=== PATIENT | female | born 1950 | race Caucasian/White ===

== ENCOUNTER 2016-07-11 03:42 | Inpatient (IN) | payer MEDICARE ==
--- NOTE | ~2016-07-11 | HP ---
History And Physical [address] [place]. [address] NAME: OLGA REESE : 52 STATUS : ADM IN [facility]#: [id number] AGE: 66 ADM/REG DATE : 07/11/16 MR#: [id number] REPORT SERV DATE: 07/11/16 DICTATED BY: JAMES BROWNE DATE: 07/11/16 REPORT STATUS : Draft TRANSCRIBED BY: MODL DATE: 07/11/16 DATE OF ADMISSION: 07/11/2016 CHIEF COMPLAINT: This is a 66-year-old female presenting with increasing perineal pain and swelling with dysuria, confusion, lethargy, and uncontrolled blood sugars. HISTORY OF PRESENT ILLNESS: The patient's history was obtained through careful interview with the patient and son coupled with review of [facility] medical records. The patient states that over this last month really she has had persistent and progressive perineal discomfort and redness. She believes the sores begin to break out at times and sometimes swelling. She describes a constant perineal discomfort, soreness quality, 5/10 severity. She has also noticed difficulty controlling blood sugars despite a reported use of her insulin. During discussion it is very clear that at times the patient is noncompliant with diet. She has had dysuria, urinary frequency over the last few days. She has had intermittent confusion and lethargy. She describes diarrhea for about a week now. She denies any fevers, chills. No shortness of breath. No cough. No chest pain. Blood sugars have been consistently in the 500s or higher at times. REVIEW OF SYSTEMS: Otherwise, a 14-point review of systems was obtained and was negative. PAST MEDICAL HISTORY: 1. Diabetes. Hemoglobin A1c of 16.1 early in 2017. 2. Pyelonephritis/urinary tract infections. 3. ESBL E. coli cellulitis. 4. COPD/asthma. 5. Obstructive sleep apnea, on CPAP. 6. Diastolic congestive heart failure and left ventricular hypertrophy. 7. Coronary artery disease, status post stent placement x10 under the care of Dr. Nilesh Noland. 8. Liver disease possibly old history of hepatitis A. 9. Hepatic encephalopathy. 10.Neuropathy. 11.Nephrolithiasis. 12.Gastroparesis. 13.Gastroesophageal reflux disorder. 14.Bipolar disorder. 15.Posttraumatic stress disorder. History And Physical [address] [place]. [address] NAME: OLGA REESE : [birth year] STATUS : ADM IN PAT#: [id number] AGE: 66 ADM/REG DATE : 07/11/16 MR#: [id number] REPORT SERV DATE: 07/11/16 DICTATED BY: JAMES BROWNE DATE: 07/11/16 REPORT STATUS : Draft TRANSCRIBED BY: MODRicky DATE: 07/11/16 16.Anxiety. 17.Depression. 18.Panic attacks. 19.Pain management. 20.Fibromyalgia. 21.Gout. 22.Rheumatoid arthritis, off Enbrel recently because of infection. 23.Peptic ulcer disease. 24.Positive PPD on previous history of isoniazid treatment. PAST SURGICAL HISTORY: 1. Perineal abscess incision and drainage. 2. Hysterectomy. 3. Appendectomy. 4. Bladder repair x2. 5. Sinus surgery. 6. Laparoscopy for "twisted colon.". 7. Left breast lumpectomy for benign disease. ALLERGIES: DARVON, ELAVIL, STADOL, DILAUDID, CYMBALTA, LATUDA. SOCIAL HISTORY: The patient smokes cigarettes. She does not drink alcohol. She is , lives with her son in [place], [place], has total of two children. FAMILY HISTORY: Diabetes, heart disease. Father at 34 years of age of a myocardial infarction. A brother with CABG. CURRENT MEDICATIONS: Include albuterol inhaler, Proventil, Norvasc 10 mg daily, aspirin 81 mg daily, Lipitor 80 mg daily, clonidine 0.2 mg p.o. b.i.d., Benadryl p.r.n., Enbrel but has been discontinued because of recent infections, Lasix 40 mg p.o. t.i.d., Neurontin 300 mg p.o. four times a day, NovoLog 30 units subcutaneous before each meal and sliding-scale insulin, Lantus 64 units subcutaneous twice a day, lisinopril 40 mg daily, Robaxin, Myrbetriq 50 mg p.o. daily, Singulair 10 mg daily, Bystolic 5 mg daily, Paxil 40 mg p.o. b.i.d., potassium 20 mEq p.o. t.i.d., Brilinta 90 mg p.o. b.i.d., Spiriva inhaled daily, Anoro Ellipta inhaled daily. PHYSICAL EXAMINATION: VITAL SIGNS: Temperature 99.1, pulse 77, blood pressure 113/58, respiratory rate 20, O2 saturation 91% on room air. GENERAL: An ill-appearing female. She describes distress from her generalized illness. HEENT: Pupils equal, round, and reactive to light. No conjunctival pallor. No scleral icterus. Nares are patent. Oropharynx is clear of obstruction. Dry mucous membranes. NECK: Trachea midline. No thyromegaly. LYMPH: No cervical lymphadenopathy. No supraclavicular lymphadenopathy. RESPIRATORY: Clear to auscultation at bases. No wheezes, rales, or rhonchi. Normal respiratory effort. History And Physical [address] [address] NAME: OLGA REESE : 52 STATUS : ADM IN [facility]#: [id number] AGE: 66 ADM/REG DATE : 07/11/16 MR#: [id number] REPORT SERV DATE: 07/11/16 DICTATED BY: JAMES BROWNE DATE: 07/11/16 REPORT STATUS : Draft TRANSCRIBED BY: SHAILA DATE: 07/11/16 CARDIOVASCULAR: Regular rate and rhythm. No murmurs, rubs, or gallops. No extremity edema is appreciated. ABDOMEN: Soft, nontender, nondistended. Normal bowel sounds auscultated throughout. No hepatosplenomegaly. No flank tenderness. DERMATOLOGIC: The patient's perineum shows areas of erythema, heat, swelling, and tenderness and ulceration over skin. Otherwise, warm and dry. EXTREMITIES: No pallor. No cyanosis. PSYCHIATRIC: Normal affect. Good mood. Alert and oriented x3. LABORATORY DATA: White blood cell count 13.8 with 11% bands, hemoglobin 12, hematocrit 37, platelets 260. Sodium 129, potassium 3.8, chloride 94, bicarb 25, BUN 13, creatinine 1.42 from baseline creatinine of 0.7, glucose 535, albumin 2.4, lactic acid 1.2. Influenza negative. Ammonia level 36. Liver enzymes within normal limits. Urinalysis shows greater than 182 white blood cells, greater than 182 red blood cells, positive leukocyte esterase. STUDIES: Chest x-ray by my own evaluation shows no acute cardiopulmonary process. ASSESSMENT AND PLAN: 1. Perineal cellulitis. Obtain a wound care consult. Place on IV vancomycin. 2. Urinary tract infection with hematuria. Check CT scan of the abdomen and pelvis, place on IV antibiotics. Check urine culture. 3. Uncontrolled diabetes. Check hemoglobin A1c. Place sliding scale insulin. Continue Levemir and premeal insulin. Obtain a asthma educator consult. I am concerned about noncompliance? 4. Diarrhea. Check stool studies. 5. Obstructive sleep apnea. Place on a CPAP. 6. Acute kidney injury. Place on IV fluids. 7. Rheumatoid arthritis. Taken off Enbrel secondary to recurrent infections. KPL/MODL James Browne M.D. / [id number] CC: MD Yessica Duron MD
--- NOTE | ~2016-07-11 | DS ---
Discharge Summary [facility] [address] [place]. [address] NAME: OLGA REESE : 52 STATUS : DIS IN PAT#: [id number] AGE: 66 ADM/REG DATE : 07/11/16 MR#: [id number] REPORT SERV DATE: 07/16/16 DICTATED BY: MAMI SPRING DATE: 07/15/16 REPORT STATUS : Draft TRANSCRIBED BY: MODL DATE: 07/15/16 ADMISSION DATE: 07/11/2016 DISCHARGE DATE: 07/15/2016 HISTORY OF PRESENT ILLNESS: The patient is a 66-year-old female with a history of diabetes type 2, COPD, diastolic heart failure, coronary artery disease, and gastroparesis, who presented to the hospital with a complaint of increasing peritoneal pain and swelling, confusion and lethargy with hyperglycemia. For further details, please refer to H and P dictated by Dr. Kenneth Pete 07/12/2015. HOSPITAL COURSE: Upon presentation to the hospital, the patient was admitted on the hospitalist service secondary to perineal cellulitis with a wound care consult placed. The patient was brought from the emergency room to the medical floor. At the time of my evaluation, the patient had altered mental status and also her stool culture came back positive for C. diff. The patient was placed on contact isolation, started on p.o. vancomycin. The patient was also noted to have UTI at the time of presentation and she was started on antibiotic therapy for that. Her electrolytes were monitored throughout her hospitalization. Status post initiation of antibiotic therapy, the patient progressively improved. Today, her diarrhea significantly improved. The patient reports that she has about three to four bowel movements a day. She states she feels significantly better than when she first presented. Her vitals are all within acceptable limits. Given significant improvement of her symptoms, the patient will be discharged home to follow with her primary care physician. Plan has been discussed with the patient who voices understanding and is agreeable with this plan. DISCHARGE DIAGNOSES: 1. Perineal cellulitis. 2. Clostridium difficile colitis. 3. Urinary tract infection with hematuria. 4. Diabetes type 2. 5. Acute kidney injury. 6. Rheumatoid arthritis. 7. Obesity. DISCHARGE PHYSICAL EXAMINATION: VITAL SIGNS: Blood pressure 107/56, pulse of 57, respirations 16, O2 sat 98% on 2 L nasal cannula, temperature 98.1. GENERAL: The patient is sitting in bed, in no acute distress. Appears stated age. HEENT: Normocephalic, atraumatic. Extraocular motors intact. Moist oral mucosa. Pupils are anicteric. NECK: Trachea midline and symmetric. No JVD. CHEST: Nontender to palpation. No scars noted. CARDIOVASCULAR: Regular rate and rhythm. S1, S2. No murmurs, rubs, or gallops. LUNGS: Clear to auscultation bilaterally. ABDOMEN: Obese, mildly distended. Positive bowel sounds. Nontender. Nondistended. No fluid thrill. No shifting dullness. EXTREMITIES: No cyanosis. No clubbing. No edema. Discharge Summary [address] [address] NAME: OLGA REESE : 52 STATUS : DIS IN [facility]#: [id number] AGE: 66 ADM/REG DATE : 07/11/16 MR#: [id number] REPORT SERV DATE: 07/16/16 DICTATED BY: MAMI SPRING DATE: 07/15/16 REPORT STATUS : Draft TRANSCRIBED BY: SHAILA DATE: 07/15/16 NEUROLOGIC: Alert and oriented x3. No focal deficits appreciated. DISCHARGE MEDICATIONS: The patient's home medications were continued with the addition of Bactrim DS one tablet b.i.d. for seven days, vancomycin 125 mg every six hours for nine days. IMAGING STUDIES: CT abdomen and pelvis. Impression. 1. Colonic thickening with inflammation of adjacent fat consistent with colitis as reported above. 2. Hysterectomy. 3. Calcific atherosclerosis. 4. Linear densities present in the lumen of the gastric antrum nonspecific, possibly catheter segment or other linear ingestants of opaque matter. DISPOSITION: The patient will be discharged home and follow up with her PCP. DIET: Diabetic diet. ACTIVITY: As tolerated. Greater than 30 minutes was spent in coordinating discharge, medication reconciliation, writing prescriptions, discussion of care with nursing staff, dictation of note. MICAELA/SHAILA Mami Spring MD / [id number] CC: MD Yessica Duron MD
[~2016-07-11 03:42] MED LIST: *UNABLE1; ADVAIR INH; AFRIN15 NAS; ALBUTEROL5 INH; ALLERGY TABLET PO; AMB10 PO; AMPI500 PO; ANOROELLIPTA INH; APRES50 PO; ARAVA20 PO; ASAB PO; AZO-STANDARD95 MG; AZO-STANDARD95 MG PO; BACLOFEN20 MG PO; BEN25 PO; BENTYL10 PO; BRILINTA90 MG PO; BYSTOLIC PO; BYSTOLIC10 MG PO; BYSTOLIC5 MG PO; CALTRA600D PO; CAT2 PO; CIP5 PO; COMBIVENT INH; COMBIVENT RESPIM4 GM INH; CONSTULOSE PO; COREG12 PO; COZAAR100 MG PO; CYMBALTA60 PO; DORYX100 MG PO; DUONEB INH; DURA50 TOP; EFFEXOR XR150 MG PO; EFFEXXR75 PO; EFFIENT PO; EFFIENT10 PO; ENBREL25 MG SC; ENBREL50 MG/M1 SC; ENDOCET1 TA3 PO; FISH OIL1200 MG PO; FOLIC PO; FOSAMAX70 MG PO; GLUCOPHAGE1000 MG PO; GLUCPH PO; HALF81 PO; HYDROCHLOROT25 MG PO; KAPIDEX60 MG PO; KDUR20 PO; KLONO1 PO; KLONO2 PO; KLOR-CON M2020 MEQ PO; L20 PO; L40 PO; LANTUS SC; LANTUSCART SC; LATUDA20 MG PO; LEVSINTAB PO; LIDODERM T; LIPITOR20 PO; LIPITOR80 MG PO; LISINOPRIL PO; LISINOPRIL40 MG PO; LOFIB160 PO; LOM PO; LORTAB10 PO; METHOC500B PO; METHOC750B PO; MIRALAXPKT PO; MTX2.5 PO; MYRBETRIQ50 MG PO; NEBULIZER MED; NEBULIZER TREATMENT INH; NEUR300 PO; NITROQUICK0.4 MG SL; NITROSTAT0.4 MG SL; NORCO1 TA1 PO; NORV10 PO; NOVOLOG SC; NOVOPEN SC; PAX10 PO; PAX20 PO; PAXIL40 MG PO; PCET PO; PLAVIX PO; PR25 PO; PRAVACHOL80 MG PO; PRILO PO; PRIN20 PO; PROAIR HFA INH; PROAIR HFA PO; PROTONIX PO; PROVENTSOL INH; PROVHFA INH; PULMICORT180 MCG INH; REMERON30 MG PO; SINGULAIR1 PO; SPIRIVA INH; SPIRO25 PO; TOPXL25 PO; TOPXL50 PO; VENTOLIN HFA INH; VIB100 PO; VICODINTAB PO; VITAMIN A8000 UNIT PO; VITAMIN D31000 UNIT PO; X25 PO; X5 PO; XANAX1 MG PO; ZESTRIL40 MG PO; ZOFRAN4 PO; ZYPREXA7.5 MG PO
[2016-07-11 03:50] LABS: BASOPHILS 0.2 %; BASOPHILS ABSOLUTE 0.03 10/3/uL (0.0-0.16); EOSINOPHILS 1.2 %; EOSINOPHILS ABSOLUTE 0.16 10/3/uL (0.0-0.53); HEMATOCRIT 36.6 % (36.0-48.0); HEMOGLOBIN 12.1 g/dL (12.0-16.0); IMMATURE GRANULOCYTES 0.1 %; IMMATURE GRANULOCYTES ABSOLUTE 0.02 10/3/uL (0.0-0.11); LYMPHOCYTES 16.5 %; LYMPHOCYTES ABSOLUTE 2.27 10/3/uL (0.67-4.30); MEAN CORPUS HGB CONC 33.1 g/dL (32.0-36.0); MEAN CORPUSCULAR HEMOGLOB 30.3 pg (26.0-34.0); MEAN CORPUSCULAR VOLUME 91.7 fL (80-100); MEAN PLATELET VOLUME 10.1 fL (9.2-13.0); MONOCYTES 6.4 %; MONOCYTES ABSOLUTE 0.88 10/3/uL (0.21-1.20); NEUTROPHILS 75.6 %; NEUTROPHILS ABSOLUTE 10.42 10/3/uL (2.02-8.40); PLATELET COUNT 260 10/3/uL (150-400); RBC DISTRIBUTION WIDTH 13.3 % (12.0-16.0); RED CELL COUNT 3.99 10/6/uL (4.0-5.6)
[2016-07-11 03:53] LABS: ER CBC TAT 0 Hrs 12 Mins; WHITE BLOOD CELLS 13.8 10/3/uL (4.5-10.5)
[2016-07-11 03:54] LABS: MANUAL DIFF NO %
[2016-07-11 04:04] LABS: A/G RATIO 0.5 (0.7-1.9); ALBUMIN 2.4 G/DL (3.5-5.0); ALKALINE PHOSPHATASE 100 U/L (45-117); BUN (BLOOD UREA NITROGEN) 13 MG/DL (6-23); CALCIUM, SERUM 7.6 MG/DL (8.5-10.4); CO2 (CARBON DIOXIDE) 25 MMOL/L (24-34); GLOBULIN 4.5 G/DL (2.5-4.1); POTASSIUM, SERUM 3.8 MMOL/L (3.5-5.3); SGOT(AST) 15 U/L (5-40); SGPT(ALT) 15 U/L (5-65); TOTAL BILIRUBIN 0.5 MG/DL (0-1.2); TOTAL PROTEIN 6.9 G/DL (6.0-8.5)
[2016-07-11 04:05] LABS: CHLORIDE, SERUM 94 MMOL/L (96-112); CREATININE 1.42 MG/DL (0.55-1.02); GFR AFRICAN AMERICAN 45 ML/MIN (>=60); GFR NON AFRICAN AMERICAN 39 ML/MIN (>=60); GLUCOSE, SERUM 535 MG/DL (60-99); LACTATE 1.2 MMOL/L (0.3-2.4); SODIUM, SERUM 129 MMOL/L (135-148)
[2016-07-11 04:14] LABS: INFLUENZA A SCREEN NEGATIVE (NEGATIVE); INFLUENZA B SCREEN NEGATIVE (NEGATIVE)
[2016-07-11 04:22] LABS: BAND NEUTROPHILS 11 %; ER DIFF TAT 0 Hrs 41 Mins; IMMATURE GRANS ABSOLUTE (CALC) 0.28 10/3/uL (0.0-0.11); LYMPHOCYTES 15 %; LYMPHOCYTES ABSOLUTE (CALC) 2.07 10/3/uL (0.67-4.30); METAMYELOCYTES 2 %; MONOCYTES 5 %; MONOCYTES ABSOLUTE (CALC) 0.69 10/3/uL (0.21-1.20); NEUTROPHILS ABSOLUTE (CALC) 10.76 10/3/uL (2.02-8.40); PLATELET ESTIMATE ADQ (ADEQUATE); RBC MORPHOLOGY NORM (NORMAL); SEGMENTED NEUTROPHIL (0) 67 %; TOTAL NUCLEATED CELLS 100
[2016-07-11 04:37] LABS: ASCORBIC ACID (UR NOT ORDER) NEG (NEG); BILIRUBIN, URINE NEGATIVE (NEG); ER URINALYSIS TAT 0 Hrs 00 Mins; KETONE, URINE NEGATIVE (NEG); LEUKOCYTE ESTERASE(NOT OR MOD (NEG); NITRITE (URINE) NEG (NEG)
[2016-07-11 04:38] LABS: WBC (NOT ORDERED) (RFLEX) > 182 (0-5)
[2016-07-11 05:45] LABS: PROCALCITONIN 0.32 ng/mL (<0.5)
[2016-07-11 11:05] LABS: HEMATOCRIT 37.7 % (36.0-48.0); HEMOGLOBIN 12.1 g/dL (12.0-16.0); MEAN CORPUS HGB CONC 32.1 g/dL (32.0-36.0); MEAN CORPUSCULAR HEMOGLOB 29.4 pg (26.0-34.0); MEAN CORPUSCULAR VOLUME 91.5 fL (80-100); MEAN PLATELET VOLUME 9.9 fL (9.2-13.0); PLATELET COUNT 251 10/3/uL (150-400); RBC DISTRIBUTION WIDTH 13.4 % (12.0-16.0); RED CELL COUNT 4.12 10/6/uL (4.0-5.6); WHITE BLOOD CELLS 14.2 10/3/uL (4.5-10.5)
[2016-07-11 11:06] LABS: MANUAL DIFF YES %
[2016-07-11 11:15] LABS: INTERNATIONAL NORMAL RATI 1.2 UNITS (-); PARTIAL THROMBO TIME 32.8 SEC (22.5-37.2); PROTIME (NOT ORD) 15.1 SEC (12.0-14.5)
[2016-07-11 11:28] LABS: A/G RATIO 0.5 (0.7-1.9); ALBUMIN 2.3 G/DL (3.5-5.0); ALKALINE PHOSPHATASE 93 U/L (45-117); BUN (BLOOD UREA NITROGEN) 13 MG/DL (6-23); CALCIUM, SERUM 7.3 MG/DL (8.5-10.4); CHLORIDE, SERUM 99 MMOL/L (96-112); CO2 (CARBON DIOXIDE) 28 MMOL/L (24-34); CREATININE 1.21 MG/DL (0.55-1.02); GFR AFRICAN AMERICAN 54 ML/MIN (>=60); GFR NON AFRICAN AMERICAN 47 ML/MIN (>=60); GLOBULIN 4.2 G/DL (2.5-4.1); SGOT(AST) 16 U/L (5-40); SGPT(ALT) 14 U/L (5-65); TOTAL BILIRUBIN 0.3 MG/DL (0-1.2); TOTAL PROTEIN 6.5 G/DL (6.0-8.5); TROPONIN I 0.03 NG/ML (<0.05)
[2016-07-11 11:30] LABS: B NATRIURETIC PEPTIDE (BNP) 74.7 PG/ML (< 100.0); GLUCOSE, SERUM 229 MG/DL (60-99); POTASSIUM, SERUM 2.9 MMOL/L (3.5-5.3); SODIUM, SERUM 136 MMOL/L (135-148)
[2016-07-11 12:25] LABS: BAND NEUTROPHILS 25 %; BASOPHILS 1 %; BASOPHILS ABSOLUTE (CALC) 0.14 10/3/uL (0.0-0.16); EOSINOPHILS 1 %; EOSINOPHILS ABSOLUTE (CALC) 0.14 10/3/uL (0.0-0.53); LYMPHOCYTES 5 %; LYMPHOCYTES ABSOLUTE (CALC) 0.71 10/3/uL (0.67-4.30); MONOCYTES 5 %; MONOCYTES ABSOLUTE (CALC) 0.71 10/3/uL (0.21-1.20); PLATELET ESTIMATE ADQ (ADEQUATE); SEGMENTED NEUTROPHIL (0) 63 %; TOTAL NUCLEATED CELLS 100
[2016-07-11 12:26] LABS: RBC MORPHOLOGY NORM (NORMAL)
[2016-07-12 05:23] LABS: HEMOGLOBIN 11.1 g/dL (12.0-16.0); MEAN CORPUS HGB CONC 32.8 g/dL (32.0-36.0); MEAN CORPUSCULAR VOLUME 91.4 fL (80-100); PLATELET COUNT 261 10/3/uL (150-400); RBC DISTRIBUTION WIDTH 13.5 % (12.0-16.0); WHITE BLOOD CELLS 12.9 10/3/uL (4.5-10.5)
[2016-07-12 05:30] LABS: HEMATOCRIT 33.8 % (36.0-48.0); MANUAL DIFF YES %
[2016-07-12 06:08] LABS: BAND NEUTROPHILS 17 %; BASOPHILS 1 %; BASOPHILS ABSOLUTE (CALC) 0.13 10/3/uL (0.0-0.16); EOSINOPHILS 1 %; EOSINOPHILS ABSOLUTE (CALC) 0.13 10/3/uL (0.0-0.53); LYMPHOCYTES 10 %; LYMPHOCYTES ABSOLUTE (CALC) 1.29 10/3/uL (0.67-4.30); MONOCYTES 8 %; MONOCYTES ABSOLUTE (CALC) 1.03 10/3/uL (0.21-1.20); NEUTROPHILS ABSOLUTE (CALC) 10.32 10/3/uL (2.02-8.40); PLATELET ESTIMATE ADQ (ADEQUATE); SEGMENTED NEUTROPHIL (0) 63 %; TOTAL NUCLEATED CELLS 100; TOXIC GRANULATION SLT
[2016-07-12 06:42] LABS: PROCALCITONIN 0.46 ng/mL (<0.5)
[2016-07-12 06:56] LABS: A/G RATIO 0.5 (0.7-1.9); ALBUMIN 2.2 G/DL (3.5-5.0); ALKALINE PHOSPHATASE 100 U/L (45-117); BUN (BLOOD UREA NITROGEN) 12 MG/DL (6-23); CALCIUM, SERUM 7.6 MG/DL (8.5-10.4); CHLORIDE, SERUM 107 MMOL/L (96-112); CREATININE 0.89 MG/DL (0.55-1.02); GFR AFRICAN AMERICAN 79 ML/MIN (>=60); GFR NON AFRICAN AMERICAN 68 ML/MIN (>=60); GLOBULIN 4.4 G/DL (2.5-4.1); SGOT(AST) 28 U/L (5-40); SGPT(ALT) 23 U/L (5-65); SODIUM, SERUM 140 MMOL/L (135-148); TOTAL BILIRUBIN 0.3 MG/DL (0-1.2); TOTAL PROTEIN 6.6 G/DL (6.0-8.5)
[2016-07-12 06:57] LABS: CO2 (CARBON DIOXIDE) 21 MMOL/L (24-34); GLUCOSE, SERUM 128 MG/DL (60-99)
[2016-07-13 08:17] LABS: HEMATOCRIT 32.7 % (36.0-48.0); HEMOGLOBIN 10.8 g/dL (12.0-16.0); MEAN CORPUSCULAR HEMOGLOB 29.8 pg (26.0-34.0); MEAN CORPUSCULAR VOLUME 90.1 fL (80-100); MEAN PLATELET VOLUME 9.9 fL (9.2-13.0); PLATELET COUNT 296 10/3/uL (150-400); RBC DISTRIBUTION WIDTH 13.6 % (12.0-16.0); RED CELL COUNT 3.63 10/6/uL (4.0-5.6)
[2016-07-13 08:19] LABS: MANUAL DIFF YES %
[2016-07-13 08:35] LABS: A/G RATIO 0.5 (0.7-1.9); ALBUMIN 1.9 G/DL (3.5-5.0); ALKALINE PHOSPHATASE 98 U/L (45-117); BUN (BLOOD UREA NITROGEN) 13 MG/DL (6-23); CALCIUM, SERUM 7.5 MG/DL (8.5-10.4); CHLORIDE, SERUM 104 MMOL/L (96-112); CO2 (CARBON DIOXIDE) 21 MMOL/L (24-34); CREATININE 0.77 MG/DL (0.55-1.02); GFR AFRICAN AMERICAN 94 ML/MIN (>=60); GFR NON AFRICAN AMERICAN 81 ML/MIN (>=60); GLOBULIN 3.9 G/DL (2.5-4.1); POTASSIUM, SERUM 3.6 MMOL/L (3.5-5.3); SGOT(AST) 18 U/L (5-40); SGPT(ALT) 15 U/L (5-65); SODIUM, SERUM 137 MMOL/L (135-148); TOTAL BILIRUBIN 0.4 MG/DL (0-1.2); TOTAL PROTEIN 5.8 G/DL (6.0-8.5)
[2016-07-13 08:36] LABS: GLUCOSE, SERUM 196 MG/DL (60-99)
[2016-07-13 08:52] LABS: BAND NEUTROPHILS 11 %; EOSINOPHILS 1 %; EOSINOPHILS ABSOLUTE (CALC) 0.16 10/3/uL (0.0-0.53); IMMATURE GRANS ABSOLUTE (CALC) 0.16 10/3/uL (0.0-0.11); LYMPHOCYTES 11 %; LYMPHOCYTES ABSOLUTE (CALC) 1.76 10/3/uL (0.67-4.30); METAMYELOCYTES 1 %; MONOCYTES 4 %; MONOCYTES ABSOLUTE (CALC) 0.64 10/3/uL (0.21-1.20); NEUTROPHILS ABSOLUTE (CALC) 13.28 10/3/uL (2.02-8.40); PLATELET ESTIMATE ADQ (ADEQUATE); RBC MORPHOLOGY NORM (NORMAL); SEGMENTED NEUTROPHIL (0) 72 %; TOTAL NUCLEATED CELLS 100
[2016-07-14 04:49] LABS: HEMATOCRIT 33.6 % (36.0-48.0); HEMOGLOBIN 11.1 g/dL (12.0-16.0); MEAN CORPUSCULAR VOLUME 90.8 fL (80-100); PLATELET COUNT 315 10/3/uL (150-400); RBC DISTRIBUTION WIDTH 13.8 % (12.0-16.0); WHITE BLOOD CELLS 17.3 10/3/uL (4.5-10.5)
[2016-07-14 05:01] LABS: A/G RATIO 0.5 (0.7-1.9); ALBUMIN 1.8 G/DL (3.5-5.0); BUN (BLOOD UREA NITROGEN) 10 MG/DL (6-23); CALCIUM, SERUM 7.9 MG/DL (8.5-10.4); CHLORIDE, SERUM 105 MMOL/L (96-112); CO2 (CARBON DIOXIDE) 23 MMOL/L (24-34); CREATININE 0.64 MG/DL (0.55-1.02); GFR AFRICAN AMERICAN 109 ML/MIN (>=60); GFR NON AFRICAN AMERICAN 94 ML/MIN (>=60); GLOBULIN 3.5 G/DL (2.5-4.1); POTASSIUM, SERUM 3.9 MMOL/L (3.5-5.3); SGOT(AST) 30 U/L (5-40); SGPT(ALT) 19 U/L (5-65); SODIUM, SERUM 140 MMOL/L (135-148); TOTAL BILIRUBIN 0.4 MG/DL (0-1.2); TOTAL PROTEIN 5.3 G/DL (6.0-8.5)
[2016-07-14 05:02] LABS: ALKALINE PHOSPHATASE 131 U/L (45-117); GLUCOSE, SERUM 104 MG/DL (60-99)
[2016-07-14 05:09] LABS: MANUAL DIFF YES %
[2016-07-14 06:08] LABS: BAND NEUTROPHILS 6 %; EOSINOPHILS 1 %; EOSINOPHILS ABSOLUTE (CALC) 0.17 10/3/uL (0.0-0.53); LYMPHOCYTES 5 %; LYMPHOCYTES ABSOLUTE (CALC) 0.87 10/3/uL (0.67-4.30); MONOCYTES 6 %; MONOCYTES ABSOLUTE (CALC) 1.04 10/3/uL (0.21-1.20); NEUTROPHILS ABSOLUTE (CALC) 15.22 10/3/uL (2.02-8.40); PLATELET ESTIMATE ADQ (ADEQUATE); RBC MORPHOLOGY NORM (NORMAL); SEGMENTED NEUTROPHIL (0) 82 %; TOTAL NUCLEATED CELLS 100
[2016-07-15 06:22] LABS: HEMATOCRIT 32.5 % (36.0-48.0); HEMOGLOBIN 10.5 g/dL (12.0-16.0); MEAN CORPUS HGB CONC 32.3 g/dL (32.0-36.0); MEAN CORPUSCULAR HEMOGLOB 29.6 pg (26.0-34.0); MEAN CORPUSCULAR VOLUME 91.5 fL (80-100); MEAN PLATELET VOLUME 9.6 fL (9.2-13.0); PLATELET COUNT 316 10/3/uL (150-400); RED CELL COUNT 3.55 10/6/uL (4.0-5.6)
[2016-07-15 06:24] LABS: MANUAL DIFF YES %
[2016-07-15 06:54] LABS: IMMATURE GRANS ABSOLUTE (CALC) 0.15 10/3/uL (0.0-0.11); LYMPHOCYTES 16 %; MONOCYTES 5 %; MONOCYTES ABSOLUTE (CALC) 0.75 10/3/uL (0.21-1.20); MYELOCYTES 1 %; SEGMENTED NEUTROPHIL (0) 78 %; TOTAL NUCLEATED CELLS 100
[2016-07-15 06:55] LABS: A/G RATIO 0.5 (0.7-1.9); ALBUMIN 1.8 G/DL (3.5-5.0); BUN (BLOOD UREA NITROGEN) 13 MG/DL (6-23); CALCIUM, SERUM 7.6 MG/DL (8.5-10.4); CHLORIDE, SERUM 108 MMOL/L (96-112); CO2 (CARBON DIOXIDE) 19 MMOL/L (24-34); CREATININE 0.66 MG/DL (0.55-1.02); GFR AFRICAN AMERICAN 107 ML/MIN (>=60); GFR NON AFRICAN AMERICAN 93 ML/MIN (>=60); GLOBULIN 3.4 G/DL (2.5-4.1); POTASSIUM, SERUM 4.3 MMOL/L (3.5-5.3); SGOT(AST) 48 U/L (5-40); SGPT(ALT) 34 U/L (5-65); SODIUM, SERUM 140 MMOL/L (135-148); TOTAL BILIRUBIN 0.3 MG/DL (0-1.2); TOTAL PROTEIN 5.2 G/DL (6.0-8.5)
[2016-07-15 06:57] LABS: ALKALINE PHOSPHATASE 160 U/L (45-117); GLUCOSE, SERUM 49 MG/DL (60-99)
[2016-07-15] MEDS ORDERED: BACTRIM DS1 TAB PO (12:41)
[2016-07-15] MEDS ORDERED: VANCOMYCIN PO (12:42)
== END 2016-07-15 15:48 | disposition home or self-care (01) | DRG 602 ==
LOC: ER 03:42 → 2SO 05:37
PROVIDERS: Emergency Medicine; Hospitalist
DX: L03.315 Cellulitis of perineum (principal); A41.9 Sepsis, unspecified organism; N17.9 Acute kidney failure, unspecified; A04.7 Enterocolitis due to Clostridium difficile; I50.32 Chronic diastolic (congestive) heart failure; N39.0 Urinary tract infection, site not specified; B15.9 Hepatitis A without hepatic coma; Z99.81 Dependence on supplemental oxygen; R31.9 Hematuria, unspecified; K72.90 Hepatic failure, unspecified without coma; E11.65 Type 2 diabetes mellitus with hyperglycemia; M06.9 Rheumatoid arthritis, unspecified; E66.9 Obesity, unspecified; J44.9 Chronic obstructive pulmonary disease, unspecified; K21.9 Gastro-esophageal reflux disease without esophagitis; F31.9 Bipolar disorder, unspecified; F43.10 Post-traumatic stress disorder, unspecified; F41.9 Anxiety disorder, unspecified; M79.7 Fibromyalgia; M10.9 Gout, unspecified; K27.9 Peptic ulcer, site unspecified, unspecified as acute or chronic, without hemorrhage or perforation; G47.33 Obstructive sleep apnea (adult) (pediatric); F17.210 Nicotine dependence, cigarettes, uncomplicated; Z95.5 Presence of coronary angioplasty implant and graft; Z68.32 Body mass index [BMI] 32.0-32.9, adult; Z87.442 Personal history of urinary calculi; Z98.890 Other specified postprocedural states; Z88.5 Allergy status to narcotic agent; Z88.8 Allergy status to other drugs, medicaments and biological substances; Z83.3 Family history of diabetes mellitus; Z82.49 Family history of ischemic heart disease and other diseases of the circulatory system; Z79.4 Long term (current) use of insulin
CPT/HCPCS: 71010; 74176; 80053; 80202; 81001; 82140; 82947; 82962; 83605; 83735; 83880; 84132; 84145; 84443; 84484; 85025; 85610; 85730; 87040; 87077; 87086; 87186; 87328; 87329; 87493; 87493-59; 87804; 89055; 96374; 96375; 96376; 99291; A9270-GY; J1885; J3370